=== PATIENT | female | born 1980 | race Caucasian/White ===

== ENCOUNTER 2016-06-03 10:56 | Day surgery (SDC) | payer BC ==
--- NOTE | ~2016-06-03 | EGD ---
EGD REPORT [facility] [address] [id number] NAME: MELODIE LAZAR : [birth year] STATUS : REG [facility]#: [id number] AGE: 35 ADM/REG DATE : 06/03/16 MR#: [id number] REPORT SERV DATE: 06/03/16 DICTATED BY: DATE: REPORT STATUS : Draft [facility] BY: [facility] DATE: 06/03/16 Endoscopy Center Patient Name: Melodie Lazar Date of : 1980 Attending MD: TATIANA CONTRERAS MD Procedure Date No Time: 06/03/2016 Procedure: Small bowel enteroscopy Indications: Nausea with vomiting, Suggestions of thickening of jejunum on imaging study Referring MD: Pankaj Alonso Medicines: Monitored Anesthesia Care Complications: No immediate complications. Procedure: Pre-Anesthesia Assessment: - ASA Grade Assessment: II - A patient with mild systemic disease. After obtaining informed consent, the endoscope was passed under direct vision. Throughout the procedure, the patient's blood pressure, pulse, and oxygen saturations were monitored continuously. The PCF [id number] was introduced through the mouth and advanced to the small bowel distal to the Ligament of Treitz. The small bowel enteroscopy was accomplished without difficulty. The patient tolerated the procedure well. Findings: There was no evidence of significant pathology in the mid-jejunum. Biopsies were taken with a cold forceps for histology. LA grade A erosive esophagitis incidentally noted as scope was withdrawn. Impression: - The examined portion of the jejunum was normal. Biopsied. Recommendation: - Discharge patient to home. - Return to previous diet. - Continue present medications. - Await pathology results. - Increase omeprazole to 40 mg twice daily next 2 weeks then back to 20 mg twice daily. Plan small bowel capsule study to look at the rest of the small bowel. Procedure Code(s): --- Professional --- 53218, Small intestinal endoscopy, enteroscopy beyond second portion of duodenum, not including ileum; with biopsy, single or multiple EGD REPORT [facility] [address] [id number] NAME: MELODIE LAZAR : [birth year] STATUS : REG [facility] [place] PAT#: [id number] AGE: 35 ADM/REG DATE : 06/03/16 MR#: [id number] REPORT SERV DATE: 06/03/16 DICTATED BY: DATE: REPORT STATUS : Draft TRANSCRIBED BY: [employer] DATE: 06/03/16 Diagnosis Code(s): --- Professional --- R11.2, Nausea with vomiting, unspecified CPT copyright 2013 [employer]. All rights reserved. The codes documented in this report are preliminary and upon medical insurance coder review may be revised to meet current compliance requirements. TATIANA CONTRERAS MD 06/03/2016 1:07 PM This report has been signed electronically. Number of Addenda: 0 Note Initiated On: 06/03/2016 9:58 AM Scope Withdrawal Time 0 hours 0 minutes 0 seconds [id number] [id number]
[~2016-06-03 10:56] MED LIST: BUSPAR15 M1 PO; PEPTO-BISMOL262 MG PO; PR25 PO; PRILO PO; SEROQUEL300 MG PO; SEROQUEL50 MG PO; TRAZ100 PO; TRAZ50 PO; ZOFRAN8 PO
== END 2016-06-03 23:59 | disposition home or self-care (01) ==
LOC: DMU 10:56
PROVIDERS: Internal Medicine Gastroenterology
PROC: 0DBA8ZX Excision of Jejunum, Via Natural or Artificial Opening Endoscopic, Diagnostic (ICD-10-PCS; principal; 2016-06-03 12:00)
DX: R11.2 Nausea with vomiting, unspecified (principal); F41.0 Panic disorder [episodic paroxysmal anxiety]; K58.9 Irritable bowel syndrome, unspecified; R63.4 Abnormal weight loss; Z88.1 Allergy status to other antibiotic agents; Z88.8 Allergy status to other drugs, medicaments and biological substances; Z79.899 Other long term (current) drug therapy; Z98.51 Tubal ligation status; Z98.890 Other specified postprocedural states
CPT/HCPCS: 84703; 88305; J2405